=== PATIENT | female | born 1980 | race Caucasian/White ===

== ENCOUNTER → 2016-05-02 | Outpatient (CLI) | payer OTHER ==
[~2016-05-02] MED LIST: FLAGYL500 MG PO; LEVAQUIN500 MG PO; NORCO 5-325 TA1 EACH PO; SYNTHROID100 MCG PO; ZOFRAN4 MG PO
== END | disposition home or self-care (01) ==
LOC: RAD.S 10:24
DX: E04.9 Nontoxic goiter, unspecified (principal)